=== PATIENT | male | born 1955 | race Caucasian/White ===

== ENCOUNTER 2017-02-04 22:08 | Inpatient (IN) | payer OTHER, BC ==
[~2017-02-04] VITALS: Ht 188 cm; Wt 61.0 kg
[2017-02-04 22:50] LABS: HEMATOCRIT 32.5 % (38.0-50.0); MCH 31.4 PG (29.0-34.0); MCHC 33.2 G/DL (30.0-36.0); MCV 94.5 FL (86-99); MEAN PLAT.VOLUME 9.4 uM^3 (9.0-12.4); PLATELET COUNT 316 K/uL (156-360); RBC DIS.WIDTH-SD 41.7 % (39-53); RED BLOOD COUNT 3.44 M/uL (4.00-5.50); WHITE BLOOD COUNT 11.7 K/uL (4.1-10.2)
[2017-02-04 23:00] LABS: CHLORIDE 97 mEq/L (99-109); POTASSIUM 4.4 mEq/L (3.7-5.4); SODIUM 129 mEq/L (136-147)
[2017-02-04 23:04] LABS: ANION GAP 7 MEQ/L (2-14)
[2017-02-04 23:05] LABS: TOTAL BILIRUBIN 0.4 mg/dL (0.0-1.0)
[2017-02-04 23:06] LABS: ALKALINE PHOSPHATASE 425 IU/L (3-129)
[2017-02-04 23:08] LABS: DIRECT BILIRUBIN 0.2 mg/dL (0.0-0.3); UREA NITROGEN (BUN) 14 mg/dL (9-23)
[2017-02-04 23:10] LABS: LIPASE 36 U/L (1.0-51.0)
[2017-02-04 23:25] LABS: GFR ESTIMATE (CALCULATED) > 59 mL/min/; GLUCOSE 454 mg/dL (70-99)
[2017-02-04 23:30] LABS: INTER. NORMALIZED RATIO 1.1; PROTHROMBIN TIME 11.2 (9.2-11.2)
[2017-02-05] MEDS ORDERED: LEXAPRO20 MG PO (01:27)
[2017-02-05] MEDS ORDERED: CREON DR 36,001 EACH PO ×2 (01:28)
[2017-02-05] MEDS ORDERED: LO-DOSE ASPIRIN81 M1 PO (01:28)
[2017-02-05] MEDS ORDERED: NEXIUM 24HR20 MG PO (01:29)
[2017-02-05] MEDS ORDERED: QUETIAPINE FUMA50 MG PO (01:29)
[2017-02-05] MEDS ORDERED: ATORVASTATIN CA20 MG PO (01:29)
[2017-02-05] MEDS ORDERED: TRESIBA FL100 UNIT/1 SC (01:30)
[2017-02-05] MEDS ORDERED: NOVOLOG PE100 UNITS/ SC (01:30)
[2017-02-05 02:17] LABS: POINT-OF-CARE METER ID UU14100415
[2017-02-05 04:34] VITALS: BP 156/74
[2017-02-05 06:27] LABS: POINT-OF-CARE METER ID UU14188577
[2017-02-05 08:00] VITALS: BP 143/74
[2017-02-05 11:40] VITALS: BP 117/61
[2017-02-05 15:51] VITALS: BP 147/71
[2017-02-05 17:23] LABS: POINT-OF-CARE METER ID UU14188577
[2017-02-05 17:23] LABS: POINT-OF-CARE METER ID UU14188577
[2017-02-05 18:03] LABS: POINT-OF-CARE METER ID UU14188577
[2017-02-05 20:15] VITALS: BP 129/64
[2017-02-05 23:17] LABS: POINT-OF-CARE METER ID UU14149397
[2017-02-05 23:37] VITALS: BP 134/62
[2017-02-05 23:42] LABS: POINT-OF-CARE METER ID UU14149397
[2017-02-06 04:37] VITALS: BP 136/65
[2017-02-06 06:25] LABS: POINT-OF-CARE METER ID UU14188577
[2017-02-06 06:50] LABS: EOSINOPHIL COUNT 0.2 K/uL (0-0.3); HEMATOCRIT 29.2 % (38.0-50.0); IMMATURE GRANULOCYTE (%) 0.3 % (0.0-0.7); INSTRUMENT ABS NEUTROPHIL CT 4.7 K/uL; LYMPHOCYTE COUNT 1.8 K/uL (1.0-2.8); MCHC 34.2 G/DL (30.0-36.0); MCV 96.4 FL (86-99); MEAN PLAT.VOLUME 9.8 uM^3 (9.0-12.4); MONOCYTE COUNT 0.7 K/uL (0-0.8); NEUTROPHIL (%) 63.9 % (45-76); NEUTROPHIL COUNT 4.7 K/uL (1.8-6.4); PLATELET COUNT 275 K/uL (156-360); RBC DIS.WIDTH-CV 12.3 % (11.8-14.6); RBC DIS.WIDTH-SD 43.1 % (39-53); RED BLOOD COUNT 3.03 M/uL (4.00-5.50); WHITE BLOOD COUNT 7.4 K/uL (4.1-10.2)
[2017-02-06 07:20] LABS: ANION GAP 7 MEQ/L (2-14); CHLORIDE 98 MEQ/L (99-109); GFR ESTIMATE (CALCULATED) > 59 mL/min/; POTASSIUM 4.1 MEQ/L (3.7-5.4); SAMPLE HEMOLYSIS CHECK 0; SAMPLE ICTERIC CHECK 0; SAMPLE LIPEMIA CHECK 0; SODIUM 133 MEQ/L (136-147); UREA NITROGEN (BUN) 14 mg/dL (9-23)
[2017-02-06 07:37] LABS: GLUCOSE 49 mg/dL (70-99)
[2017-02-06 07:41] VITALS: BP 121/59
[2017-02-06 07:57] LABS: POINT-OF-CARE METER ID UU14188577
[2017-02-06 09:59] LABS: EOSINOPHIL COUNT 0.2 K/uL (0-0.3); HEMATOCRIT 31.1 % (38.0-50.0); IMMATURE GRANULOCYTE (%) 0.4 % (0.0-0.7); INSTRUMENT ABS NEUTROPHIL CT 4.1 K/uL; LYMPHOCYTE COUNT 2.2 K/uL (1.0-2.8); MCHC 34.1 G/DL (30.0-36.0); MCV 96.9 FL (86-99); MEAN PLAT.VOLUME 9.4 uM^3 (9.0-12.4); MONOCYTE (%) 8.8 % (3-12); MONOCYTE COUNT 0.6 K/uL (0-0.8); NEUTROPHIL (%) 56.4 % (45-76); NEUTROPHIL COUNT 4.1 K/uL (1.8-6.4); PLATELET COUNT 267 K/uL (156-360); RBC DIS.WIDTH-CV 12.3 % (11.8-14.6); RBC DIS.WIDTH-SD 43.3 % (39-53); RED BLOOD COUNT 3.21 M/uL (4.00-5.50); WHITE BLOOD COUNT 7.2 K/uL (4.1-10.2)
[2017-02-06 11:46] LABS: POINT-OF-CARE METER ID UU14188577
[2017-02-06 11:54] VITALS: BP 138/68
[2017-02-06 15:58] VITALS: BP 127/67
[2017-02-06 16:23] LABS: POINT-OF-CARE METER ID UU14188577
[2017-02-06 20:30] VITALS: BP 105/55
[2017-02-06 21:50] LABS: POINT-OF-CARE METER ID UU14188577
[2017-02-06 23:45] VITALS: BP 128/63
[2017-02-07 04:17] VITALS: BP 92/55
[2017-02-07 06:16] LABS: EOSINOPHIL (%) 2.1 % (0-5); EOSINOPHIL COUNT 0.2 K/uL (0-0.3); HEMATOCRIT 26.3 % (38.0-50.0); IMMATURE GRANULOCYTE (%) 0.4 % (0.0-0.7); INSTRUMENT ABS NEUTROPHIL CT 6.7 K/uL; LYMPHOCYTE COUNT 1.9 K/uL (1.0-2.8); MCH 32.1 PG (29.0-34.0); MCHC 33.5 G/DL (30.0-36.0); MEAN PLAT.VOLUME 9.7 uM^3 (9.0-12.4); MONOCYTE (%) 10.2 % (3-12); NEUTROPHIL (%) 67.7 % (45-76); NEUTROPHIL COUNT 6.7 K/uL (1.8-6.4); PLATELET COUNT 259 K/uL (156-360); RBC DIS.WIDTH-CV 12.2 % (11.8-14.6); RBC DIS.WIDTH-SD 42.6 % (39-53); RED BLOOD COUNT 2.74 M/uL (4.00-5.50); WHITE BLOOD COUNT 9.8 K/uL (4.1-10.2)
[2017-02-07 08:19] VITALS: BP 121/60
[2017-02-07 11:55] VITALS: BP 128/84
[2017-02-07 17:11] VITALS: BP 157/73
[2017-02-07 19:58] VITALS: BP 126/61
[2017-02-08 00:01] VITALS: BP 110/56
[2017-02-08 04:24] VITALS: BP 126/61
[2017-02-08 09:49] VITALS: BP 121/72
[2017-02-08 11:04] VITALS: BP 116/57
[2017-02-08 11:15] LABS: POINT-OF-CARE METER ID UU14149397
[2017-02-08] MEDS ORDERED: IBUPROFEN600 MG PO (13:52)
[2017-02-08 15:56] VITALS: BP 112/50
[2017-02-08 16:05] LABS: POINT-OF-CARE METER ID UU14188577
== END 2017-02-08 17:53 | disposition home or self-care (01) | DRG 200 ==
LOC: EME 22:08 → TRA 22:08 → EDOF 02-05 01:25 → 3EAST 02-05 01:25
PROVIDERS: Emergency Medicine; Surgery
PROC: 0W9B30Z Drainage of Left Pleural Cavity with Drainage Device, Percutaneous Approach (ICD-10-PCS; principal; 2017-02-05)
DX: S27.2XXA Traumatic hemopneumothorax, initial encounter (principal); S22.32XA Fracture of one rib, left side, initial encounter for closed fracture; S27.321A Contusion of lung, unilateral, initial encounter; T79.7XXA Traumatic subcutaneous emphysema, initial encounter; V29.9XXA Motorcycle rider (driver) (passenger) injured in unspecified traffic accident, initial encounter; E11.9 Type 2 diabetes mellitus without complications; F17.200 Nicotine dependence, unspecified, uncomplicated; Z79.82 Long term (current) use of aspirin; Z68.1 Body mass index [BMI] 19.9 or less, adult
CPT/HCPCS: 71010; 71020; 71260; 74177; 80048; 80076; 82948; 83690; 85025; 85025 91; 85027; 85610; 94799; 99281; 99285; J1170; J1650; J1815; J2270; J7030; J7120